=== PATIENT | male | born 1950 | race Caucasian/White ===

== ENCOUNTER 2020-06-16 12:27 | Emergency (ER) | payer MEDICARE ==
[2020-06-16 14:11] LABS: BILIRUBIN NEGATIVE (NEGATIVE); BLOOD NEGATIVE Ery/uL (NEGATIVE); CLARITY CLEAR (CLEAR); COLOR YELLOW (YELLOW); GLUCOSE (U) 3+ mg/dL (NORMAL); LEUKOCYTES NEGATIVE Leu/uL (NEGATIVE); NITRITE NEGATIVE (NEGATIVE); PROTEIN NEGATIVE (NEGATIVE); UROBILINOGEN 0.2 mg/dL (0.2-1.0)
[2020-06-16 14:11] LABS: BASOPHIL 0.7 % (0-2); HCT 44.3 % (42.0-52.0); HGB 16.3 g/dl (13.2-18.0); LYMPHOCYTE 26.9 % (15-48); MCH 30.5 pg (25.0-31.0); MCHC 36.8 g/dL (32.0-36.0); NEUTROPHIL 60.2 % (41-80); NRBC 0; PLT 326 K/uL (150-400); RBC 5.34 M/uL (4.70-6.00); RDW 12.9 % (11.5-14.0); WBC 8.6 K/uL (4.0-10.5)
[2020-06-16 14:28] LABS: ALBUMIN 3.7 g/dL (3.4-5.0); BILIRUBIN - TOTAL 0.4 mg/dL (0.2-1.0); BUN/CREAT RATIO (CALC) 17.6 RATIO; CREATININE 1.02 mg/dL (0.67-1.17); GLOBULIN (CALCULATION) 3.2 g/dL; POTASSIUM 3.5 mmol/L (3.5-5.1); TOTAL PROTEIN 6.9 g/dL (6.4-8.2)
[2020-09-13] MEDS ORDERED: MEN'S ONE DAIL1 EACH PO (13:33)
[2020-09-13] MEDS ORDERED: LOVAZA1 GM PO (13:34)
[2020-09-13] MEDS ORDERED: PRINIVIL20 MG PO (13:34)
[2020-09-13] MEDS ORDERED: METFORMIN HCL500 MG PO (13:35)
[2020-09-13] MEDS ORDERED: JANUVIA100 MG PO (13:35)
[2020-09-13] MEDS ORDERED: OMEPRAZOLE20 M1 PO (13:36)
[2020-09-13] MEDS ORDERED: NEURIVA PLUS B1 EACH PO (13:38)
[2020-09-13] MEDS ORDERED: FENOFIBRATE48 MG PO (13:39)
[2020-09-13] MEDS ORDERED: OZEMPIC1 MG/0.71 SC (13:41)
[2020-09-23] MEDS ORDERED: ASPIRIN EC81 MG PO (08:12)
[2020-09-23] MEDS ORDERED: MOTRIN600 MG PO (11:15)
[2020-09-23] MEDS ORDERED: OXY-IR 5MG5 MG PO (11:15)
[2020-09-23] MEDS ORDERED: COLACE100 MG PO (11:15)
[2020-09-23] MEDS ORDERED: ACETAMINOPHEN500 M1 PO (11:15)
== END 2020-06-16 15:50 | disposition home or self-care (01) ==
LOC: FER 12:27
PROVIDERS: Emergency Medicine
DX: K40.90 Unilateral inguinal hernia, without obstruction or gangrene, not specified as recurrent (principal); I10 Essential (primary) hypertension; E11.9 Type 2 diabetes mellitus without complications; Z88.0 Allergy status to penicillin
CPT/HCPCS: 36415; 80053; 81003; 85025; Q9967